=== PATIENT | female | born 1955 | race Caucasian/White ===

== ENCOUNTER 2020-06-10 06:34 | Day surgery (SDC) | payer MEDICARE, BC ==
[~2020-06-10] VITALS: Ht 170.2 cm; Wt 46.1 kg
[2020-06-10] VITALS (8 sets, daily range): BP systolic 137–164; BP diastolic 53–88
[2020-06-10] MEDS ORDERED: clindamycin 600mg/D5W 50ml 50 ML IV ONE ×2 (07:00→08:28)
[2020-06-10] MEDS ORDERED: normal saline 1000ml 1,000 ML IV PRN (07:00)
[2020-06-10] MEDS ORDERED: NITR0.4T51 SL (07:37)
[2020-06-10] MEDS ORDERED: TIOT4MIS5 INH (07:37)
[2020-06-10] MEDS ORDERED: ALBU18HF2 INH (07:37)
[2020-06-10] MEDS ORDERED: LOVA20TA2 PO (07:37)
[2020-06-10] MEDS ORDERED: CHOL10006 PO (07:37)
[2020-06-10] MEDS ORDERED: SECU150P SQ (07:37)
[2020-06-10] MEDS ORDERED: DIPH-423 PO (07:37)
[2020-06-10] MEDS ORDERED: IBUP-24 PO (07:37)
[2020-06-10] MEDS ORDERED: ASPI-1265 PO (07:37)
[2020-06-10] MEDS ORDERED: SERT100T PO (07:37)
[2020-06-10] MEDS ORDERED: BACL-11 PO (07:37)
[2020-06-10] MEDS ORDERED: CALC-1215 PO (07:37)
[2020-06-10] MEDS ORDERED: TRAZ-251 PO (07:37)
[2020-06-10] MEDS ORDERED: LORA-512 PO (07:37)
[2020-06-10] MEDS ORDERED: diphenhydrAMINE 50 mg/ml inj ONE (08:14)
[2020-06-10 08:15] LABS: BASOPHILS # (AUTO) 0.1 X10'3 (0-0.2); BASOPHILS % (AUTO) 1.4 % (0-1); EOSINOPHILS # (AUTO) 0.1 X10'3 (0-0.9); EOSINOPHILS % (AUTO) 2.9 % (0-6); HEMATOCRIT 41.1 % (35.0-45.0); HEMOGLOBIN 13.6 g/dl (12.0-16.0); LYMPHOCYTES # (AUTO) 0.5 X10'3 (1.1-4.8); LYMPHOCYTES % (AUTO) 10.7 % (21-51); MEAN CORPUSCULAR HEMOGLOBIN 29.1 PG (27.0-31.0); MEAN CORPUSCULAR HGB CONC 33.2 g/dL (33.0-36.5); MEAN CORPUSCULAR VOLUME 87.8 FL (78-98); MEAN PLATELET VOLUME 8.5 FL (7.4-10.4); MONOCYTES # (AUTO) 0.3 X10'3 (0-0.9); MONOCYTES % (AUTO) 7.6 % (2-12); NEUTROPHILS # (AUTO) 3.4 X10'3 (1.8-7.7); NEUTROPHILS % (AUTO) 77.4 % (42-75); PLATELET COUNT 187 X10'3 (140-440); RED BLOOD COUNT 4.68 X10'6 (4.20-5.60); WHITE BLOOD COUNT 4.4 X10'3 (4.5-11.0)
[2020-06-10] MEDS ORDERED: midazolam 2 mg/2 ml injection ONE ×2 (08:15→08:53)
[2020-06-10] MEDS ORDERED: iohexol 300 MG/1 ML 50ml polymer ONE (08:15)
[2020-06-10] MEDS ORDERED: LIDOcaine 1%/PF 5ML 10 MG/ML VIAL ONE (08:15)
[2020-06-10] MEDS ORDERED: fentaNYL/PF 50MCG/1 ML 2ML syringe ONE ×2 (08:15→08:53)
[2020-06-10 08:19] LABS: ALBUMIN 3.2 G/DL (3.4-5.0); ANION GAP 11 (8-16); BLOOD UREA NITROGEN 14 MG/DL (7-18); BUN/CREATININE RATIO 13.7 (6.6-38.0); CALCIUM 9.2 MG/DL (8.5-10.1); CHLORIDE 106 MMOL/L (99-107); CREATININE 1.02 MG/DL (0.40-0.90); GLUCOSE 83 MG/DL (70-104); POTASSIUM 4.5 MMOL/L (3.5-5.1); SODIUM 143 MMOL/L (135-145); TOTAL CARBON DIOXIDE 26.5 MMOL/L (24-32); eGFR 54 ML/MIN
--- NOTE | 2020-06-10 09:35 | NUR ---
correction: end tidal CO2 not being monitored in room. [id number] vs charted
[2020-06-10] MEDS ORDERED: normal saline 1000ml 1,000 ML IV SCH (09:40)
[2020-06-10] MEDS ORDERED: acetaminophen 325mg tablet PO PRN (10:45)
[2020-06-10] MEDS ORDERED: ondansetron/PF 4mg/2ml inj IV ONE (11:25)
--- NOTE | 2020-06-10 13:37 | NUR ---
Pt was given iv antibiotic in angio suit, per Donna [facility].
== END 2020-06-10 12:40 | disposition home or self-care (01) ==
LOC: SSTAY O 06:34
PROVIDERS: ATTEND Radiology Vascular & Interventional Radiology
DX: M80.88XA Other osteoporosis with current pathological fracture, vertebra(e), initial encounter for fracture (principal); I25.10 Atherosclerotic heart disease of native coronary artery without angina pectoris; F41.9 Anxiety disorder, unspecified; F32.9 Major depressive disorder, single episode, unspecified; M81.0 Age-related osteoporosis without current pathological fracture; F17.210 Nicotine dependence, cigarettes, uncomplicated; Z79.899 Other long term (current) drug therapy; Z90.710 Acquired absence of both cervix and uterus; Z95.1 Presence of aortocoronary bypass graft; Z90.49 Acquired absence of other specified parts of digestive tract; Z98.890 Other specified postprocedural states; Z86.711 Personal history of pulmonary embolism; Z85.41 Personal history of malignant neoplasm of cervix uteri; Z88.5 Allergy status to narcotic agent; Z88.0 Allergy status to penicillin; X58.XXXA Exposure to other specified factors, initial encounter; Y93.89 Activity, other specified; Y92.89 Other specified places as the place of occurrence of the external cause; Y99.8 Other external cause status
CPT/HCPCS: 22514; 36415; 80048; 85025; 85610; 99152; 99153; C1713; J1200; J2250; J2405; J3010; J7030; Q9967; 88173; 88305; 88342; J3490